=== PATIENT | female | born 1975 | race Caucasian/White ===

== ENCOUNTER → 2021-09-25 16:09 | Outpatient (BNVA) | payer OTHER, SELFPAY | PROVIDERS: Visit Provider Family Medicine | DX: F32.9 Major depressive disorder, single episode, unspecified (principal); E03.9 Hypothyroidism, unspecified; E78.2 Mixed hyperlipidemia; F51.05 Insomnia due to other mental disorder; F40.9 Phobic anxiety disorder, unspecified; Z12.4 Encounter for screening for malignant neoplasm of cervix; R59.0 Localized enlarged lymph nodes | CPT/HCPCS: 80053; 80061; 83721; 84439; 84443; 85025 ==

== ENCOUNTER → 2021-10-17 15:12 | Outpatient (BNVA) | payer OTHER, SELFPAY | PROVIDERS: Referring Provider Family Medicine; Visit Provider Nurse Practitioner Women's Health | DX: Z01.419 Encounter for gynecological examination (general) (routine) without abnormal findings (principal); N91.2 Amenorrhea, unspecified; N76.0 Acute vaginitis; R59.0 Localized enlarged lymph nodes; N89.8 Other specified noninflammatory disorders of vagina | CPT/HCPCS: 82670; 83001; 84146; 84702; 87624 ==

== ENCOUNTER 2021-11-21 06:27 | Outpatient (CLI) | payer OTHER, SELFPAY ==
--- NOTE | 2021-11-21 07:00 | US_ITS ---
WS: [id number] TRANSVAGINAL PELVIC ULTRASOUND HISTORY: N91.2 - Amenorrhea, unspecified COMPARISON: None available. Uterus: 6.6 cm x 3.4 cm x 2.8 cm. Normal size anteverted uterus. Hypoechoic mass with shadowing in th e fundus of the uterus. Hypoechoic area measures 0.9 x 1.4 x 1.1 cm. Endometrium: 0.3 cm. Normal homogeneity. No increased vascularity or mass. Right ovary: 2.1 cm x 1.8 cm x 2.2 cm. Normal size ovary. There is a small hypoechoic area within the ovary measuring 8 x 8 mm. Probably representing a small hemorrhagic follicle. No increased vasculari ty. Left ovary: Not visualized. No LEFT adnexal mass. No free fluid in the cul-de-sac. US/US transvaginal [id number] IMPRESSION: 1. Normal endometrium. 2. Small uterine fundal fibroid with a maximum diameter 1.4 cm. 3. LEFT ovary not visualized.
== END 2021-11-21 06:28 | disposition home or self-care (01) ==
PROVIDERS: Visit Provider Nurse Practitioner Women's Health
DX: N91.2 Amenorrhea, unspecified (principal); D25.9 Leiomyoma of uterus, unspecified
CPT/HCPCS: 76830

== ENCOUNTER → 2021-11-28 11:06 | Outpatient (BNVA) | payer OTHER, SELFPAY | PROVIDERS: Visit Provider Nurse Practitioner Women's Health | DX: E03.9 Hypothyroidism, unspecified (principal); N95.1 Menopausal and female climacteric states | CPT/HCPCS: 84443 ==

== ENCOUNTER → 2022-01-30 11:00 | Outpatient (BNVA) | payer OTHER, SELFPAY | PROVIDERS: PCP Family Medicine; Referring Provider Dermatology; Visit Provider Orthopaedic Surgery | DX: M47.897 Other spondylosis, lumbosacral region (principal); M47.896 Other spondylosis, lumbar region | CPT/HCPCS: 72110 ==

== ENCOUNTER 2022-02-13 06:00 | Outpatient (RCR) | payer OTHER, SELFPAY | END 2022-03-11 23:59 | disposition home or self-care (01) | LOC: SPT 06:00 | PROVIDERS: PCP Family Medicine; Referring Provider Orthopaedic Surgery; Visit Provider Orthopaedic Surgery | DX: M54.50 Low back pain, unspecified (principal) | CPT/HCPCS: 81000; 87086; 97110; 97161 ==

== ENCOUNTER → 2022-02-13 11:08 | Outpatient (BNVA) | payer OTHER, SELFPAY | PROVIDERS: PCP Family Medicine; Visit Provider Nurse Practitioner Women's Health | DX: R82.90 Unspecified abnormal findings in urine (principal); N95.0 Postmenopausal bleeding | CPT/HCPCS: 81000; 87086 ==

== ENCOUNTER → 2022-03-05 15:40 | Outpatient (BNVA) | payer OTHER, SELFPAY | PROVIDERS: PCP Family Medicine; Visit Provider Family Medicine | DX: F51.05 Insomnia due to other mental disorder (principal); F40.9 Phobic anxiety disorder, unspecified; E03.9 Hypothyroidism, unspecified; G47.00 Insomnia, unspecified; M48.062 Spinal stenosis, lumbar region with neurogenic claudication | CPT/HCPCS: 84439; 84443 ==

== ENCOUNTER 2022-03-12 06:00 | Outpatient (RCR) | payer OTHER, SELFPAY | END 2022-04-11 23:59 | disposition home or self-care (01) | LOC: SPT 06:00 | PROVIDERS: PCP Family Medicine; Referring Provider Orthopaedic Surgery; Visit Provider Orthopaedic Surgery | DX: M54.50 Low back pain, unspecified (principal) | CPT/HCPCS: 97110 ==

== ENCOUNTER 2022-03-12 14:45 | Outpatient (CLI) | payer OTHER, SELFPAY ==
--- NOTE | 2022-03-12 14:30 | US_ITS ---
WS: [id number] ULTRASOUND PELVIS TECHNIQUE: Transvaginal. CLINICAL INFORMATION: N95.0 - Postmenopausal bleeding LMP: : No. COMPARISON: November 21, 2021 FINDINGS: Uterus Orientation: Anteverted. Size: 7.9 x 2.8 x 3.8 cm Masses: Small intramural uterine fibroid along the fundus measuring measuring 1.5 cm unchanged from p revious. Cervix: Small amount of fluid in the cervix. Endometrium: Heterogeneous complex Endometrium thickness: 9.8 mm. Adnexa: LEFT ovary not visualized Right ovary size: 1.3 x 1.9 x 1.2 cm. Free fluid: Small amount of free fluid along the uterine fundus. Other findings: None. US/US transvaginal [id number] IMPRESSION: 1. Heterogeneous thickened endometrium measuring 9.8 mm. 2. LEFT ovary not visualized. Normal visualized RIGHT ovary. 3. Small amount of fluid in the cervix. Small amount of free fluid along the u terine fundus 4. Small intramural uterine fibroid along the fundus measuring measuring 1.5 c m unchanged from previous.
== END 2022-03-12 14:46 | disposition home or self-care (01) ==
PROVIDERS: PCP Family Medicine; Visit Provider Nurse Practitioner Women's Health
DX: N95.0 Postmenopausal bleeding (principal)
CPT/HCPCS: 76830

== ENCOUNTER → 2022-03-14 11:59 | Outpatient (BNVA) | payer OTHER, SELFPAY | PROVIDERS: PCP Family Medicine; Visit Provider Nurse Practitioner Women's Health | DX: N95.0 Postmenopausal bleeding (principal) | CPT/HCPCS: 82670; 83001 ==

== ENCOUNTER 2022-04-12 06:00 | Outpatient (RCR) | payer OTHER, SELFPAY | END 2022-05-11 23:59 | disposition home or self-care (01) | LOC: SPT 06:00 | PROVIDERS: PCP Family Medicine; Referring Provider Orthopaedic Surgery; Visit Provider Orthopaedic Surgery | DX: M54.50 Low back pain, unspecified (principal) | CPT/HCPCS: 97110 ==

== ENCOUNTER 2022-05-01 08:08 | Day surgery (SDC) | payer OTHER, SELFPAY ==
--- NOTE | 2022-04-30 13:54 | PM.HP ---
Providers/Chief Complaint Primary Care Provider: Clive Mg DO Chief Complaint: postmenopau History of Present Illness Shubham Rahman is a 46 year old female who will undergo hysteroscopy, D&C with myosure Review of Systems General: Reports: 10 or more systems reviewed and unremarkable except in HPI and below Medications/Allergies Home Medications Medication Instructions Recorded Confirmed Last Taken Type levothyroxine 137 mcg tablet 137 mcg PO DAILY #90 tabs 12/04/21 04/19/22 Unknown Rx tramadol 50 mg tablet 50 mg PO Q4H PRN pain #30 tabs 02/05/22 04/19/22 Unknown Rx zolpidem 10 mg tablet 10 mg PO .at bedtime 30 days #30 02/27/22 04/19/22 Unknown Rx tabs trazodone 100 mg tablet 100 mg PO DAILY #90 tabs 03/05/22 04/19/22 Unknown Rx rosuvastatin 20 mg tablet 20 mg PO DAILY #30 tabs 04/02/22 04/19/22 Unknown Rx cyclobenzaprine 10 mg tablet 10 mg PO TID PRN muscle spasm #60 04/19/22 04/19/22 Unknown Rx tabs topiramate 50 mg tablet 50 mg PO BID pain #60 tabs 04/19/22 04/19/22 Unknown Rx fluoxetine 20 mg capsule See Rx Instructions .Route 04/23/22 Unknown Rx .COMPLEX #30 caps Allergies Allergy/AdvReac Type Severity Reaction Status Date / Time No Known Allergies Allergy Verified 04/19/22 09:02 PFSH Acute PFSH: Medical History Acquired hypothyroidism Major depressive disorder Mixed dyslipidemia No pertinent past medical history neghx: htn,dm,dvt/pe PCP: Dr. Mg Surgical History Hx of oral surgery (~2018) Family History Mother Heart disease Denies family history of Colon cancer Ovarian cancer Diabetes Hypercholesteremia Breast cancer Hypertension Uterine cancer Thyroid disease Stroke Social History Alcohol intake: current Physical Exam Narrative: The patient presented to discuss hysteroscopy, D&C with myosure.? She is postmenopausal with a thickened endometrium and PMB.? She had cervical stenosis and an EMB was unable to be performed.? She has been scheduled for 05/01/22 for hysteroscopy, dilation and curettage with myosure. Const: COMMON NORMALS: no acute distress, patient oriented x3, no limitations, healthy appearing, alert and well nourished GENERAL APPEARANCE: cooperative, comfortable, well kempt and well developed ORIENTATION/CONSCIOUSNESS: Yes awake, Yes oriented to person, Yes oriented to place and Yes oriented to time Resp: COMMON NORMALS: normal respiratory effort EFFORT & INSPECTION: Yes able to speak in complete sentences GI: COMMON NORMALS: Soft to palpation and non-tender : COMMON NORMALS: Yes normal external appearance, Yes normal appearance of the vagina, Yes normal appearance of the cervix, Yes normal bimanual exam and Yes No adnexal tenderness Extremity: COMMON NORMALS: no calf tenderness Psych: COMMON NORMALS: mental status grossly normal, Normal thought process present, cooperative, normal affect and speech normal A&P Assessment and plan (1) Thickened endometrium: The patient has been scheduled for hysteroscopy, dilation and curettage with myosure on 05/01/22 Risks, benefits and alternatives to procedure were discussed with the patient including but not limited to: pain, bleeding, infection, development of a blood clot or pulmonary embolism, damage to bowel, bladder, ureters, blood vessels, formation of scar tissue or even . . These are the most common complications, but there may be other, unforseen complications that could arise during surgery. The patient accepts these risks and desires to proceed. 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
[2022-05-01] VITALS (14 sets, daily range): BP systolic 110–151; BP diastolic 70–100; PULSE 61–83; RESP 12–18; TEMP 36.1–36.4; O2SAT 95–100
--- NOTE | 2022-05-01 07:45 | ANES.PREANE2 ---
Pre-Anesthetic Assessment Height/Weight: Height 1.63 m Weight 82.554 kg Preop Diagnosis: Thickened endometrium Operation Date: 05/01/22 09:15 Proposed Procedures p Hysteroscopy, dilation and curettage with Myosure 05141, [id number],N95.0(Not Applicable) - Margaret Ritter MD s Dilation And Curettage (D&C)(Not Applicable) - Margaret Ritter MD Familial anesthetic complications: None Was Beta Cece taken within 24 hours: N/A Was Clonidine taken within 24 hours: N/A Last intake: 04/30/22 Social Tobacco (Vape) and No alcohol Exam alert, oriented x 3, clear to auscultation bilaterally and regular rate & rhythm Airway Submandibular: within normal limits Cervical ROM: within normal limits Mallampati: Class II Dentition: full Pulmonary None reported CV/HEM None reported METS > 4 Post menopausal bleeding Cervical stenosis (uterine) Thickened endometrium Hepatic None reported GI Obese Metabolic Hyperlipidemia and Thyroid Disease Musc/skel Lower Back Pain and Osteoarthritis/DJD Neuropsych Depression Anesthetic Plan ASA status: 2 Anesthesia: Anesthesia Evaluation and General Other: We discussed risk and benefits of general anesthesia including PONV, sore throat (sometimes severe), corneal abrasion, positioning and peripheral nerve injuries, life threatening allergic reaction, post operative ICU admission requiring prolonged intubation, aspiration, stroke, heart attack, , and rare incidences of recall. Patient consents to proceed with general anesthesia. Risk of > 500 ml blood loss (7ml/kg in children): No Medications/Allergies Home Medications Medication Instructions Recorded Confirmed Last Taken Type levothyroxine 137 mcg tablet 137 mcg PO DAILY #90 tabs 12/04/21 05/01/22 05/01/22 Rx tramadol 50 mg tablet 50 mg PO Q4H PRN pain #30 tabs 02/05/22 05/01/22 04/30/22 Rx zolpidem 10 mg tablet 10 mg PO .at bedtime 30 days #30 02/27/22 05/01/22 04/30/22 Rx tabs trazodone 100 mg tablet 100 mg PO DAILY #90 tabs 03/05/22 05/01/22 04/30/22 Rx rosuvastatin 20 mg tablet 20 mg PO DAILY #30 tabs 04/02/22 05/01/22 04/30/22 Rx cyclobenzaprine 10 mg tablet 10 mg PO TID PRN muscle spasm #60 04/19/22 05/01/22 04/30/22 Rx tabs topiramate 50 mg tablet 50 mg PO BID pain #60 tabs 04/19/22 05/01/22 04/30/22 Rx fluoxetine 20 mg capsule 20 mg PO DAILY 04/30/22 05/01/22 05/01/22 History Allergies Allergy/AdvReac Type Severity Reaction Status Date / Time No Known Allergies Allergy Verified 05/01/22 08:43 PFS Anesthesia Medical History Acquired hypothyroidism Major depressive disorder Mixed dyslipidemia No pertinent past medical history neghx: htn,dm,dvt/pe PCP: Dr. Mg Surgical History Hx of oral surgery (~2018) Family History Mother Heart disease Denies family history of Colon cancer Ovarian cancer Diabetes Hypercholesteremia Breast cancer Hypertension Uterine cancer Thyroid disease Stroke Social History Alcohol intake: current Data Anesthesia Cardiac Studies: No Data to Display
[2022-05-01 08:51] LABS: OR HCG Qualitative Urine Negative (Negative)
[2022-05-01] MEDS: scopolamine 1.5 Patch 1 PATCH TRANSDERMA (08:58)
[2022-05-01] MEDS: diphenhydrAMINE 50 mg/mL SDV 1mL 12.5 MG IVP (08:59)
[2022-05-01] MEDS: sodium chloride 0.9% 1,000 ML 30 ML IV (09:00)
--- NOTE | 2022-05-01 09:27 | W.PM.OPSUD ---
Surgery/Procedure H&P Update DATE OF PROCEDURE: May 01, 2022 DATE H&P PERFORMED: 04/30/22 PREOP DIAGNOSIS: Thickened endometrium PLANNED PROCEDURE: Operation Date: 05/01/22 09:15 Proposed Procedures p Hysteroscopy, dilation and curettage with Myosure 80545, [id number],N95.0(Not Applicable) - Margaret Ritter MD s Dilation And Curettage (D&C)(Not Applicable) - Margaret Ritter MD Related Problem List Diagnoses (1) Thickened endometrium: (2) Postmenopausal bleeding:
[2022-05-01] MEDS: ceFAZolin 2,000 MG in sodium chloride 0.9% (plus) 50 ML 100 MG IV (09:51)
--- NOTE | 2022-05-01 10:47 | PM.OP ---
Operative Report Date of procedure: May 01, 2022 Pre-op diagnosis: Preop Diagnosis Thickened endometrium Post-op diagnosis: same Post-op findings: endometrial polyps and excessive tissue Procedure done: hysteroscopy, dilation and curettage with myosure Specimens removed/disposition: endometrial curettings to pathology Surgeon: Margaret Ritter Anesthesia: General Estimated blood loss (mL): 5 IV fluids (mL): 400 Complications: none Findings: hysteroscopy deficit 270 ml Condition: stable Disposition: PACU Procedure: The patient was taken to the operating room where monitored anesthesia was administered and to be adequate. She was prepped and draped in the normal sterile fashion in the dorsal lithotomy position in [facility]. A weighted speculum was placed into the vagina and the anterior lip of the cervix grasped with a single-tooth tenaculum. The uterus was sounded to 8 cm. The cervix was dilated to 16 [place]. The hysteroscope was advanced into the endometrial cavity. There was 2 large polyps and some excess tissue visualized. The MyoSure device was activated and the tissue was removed. A sharp curette was performed as well, as there was bleeding from the endometrium which made it difficult to see. Pictures were taken All instruments were removed. The patient tolerated the procedure well. Sponge lap and needle counts were correct x3. She was taken to the recovery room in stable condition.
[2022-05-01] MEDS: midazolam 1 mg/mL INJ 2 mL 2 MG IVP (10:49)
--- NOTE | 2022-05-01 10:52 | PM.DCS ---
Discharge Providers Date of Admission: 05/01/22 Date of Discharge: May 01, 2022 Attending Provider at Discharge: Margaret Ritter MD Primary Care Provider: Clive Mg DO Diagnoses at Discharge Discharge Diagnosis (1) Thickened endometrium: Status: Acute (2) Postmenopausal bleeding: Status: Acute Reason for Visit Reason for Visit: postmenopau Hospital Course Hospital Course The patient was admitted for surgery. She did well postoperatively and was ready for discharge Discharge Data Studies Completed and Pending Pending at discharge Category Date Time Status ES surgery / GI images Routine Exams 05/01/22 09:35 Taken Pathology: Surgical [PTH] Routine Pth 05/01/22 10:34 Ordered Laboratory Results Urine HCG, Qual Negative (Negative) 05/01/22 08:47 Vitals Last Vital Signs Temp 97.6 F 05/01/22 08:35 Pulse 67 05/01/22 08:35 Resp 16 05/01/22 08:35 BP 115/71 05/01/22 08:35 Pulse Ox 98 05/01/22 08:35 O2 Del Method 05/01/22 08:35 Discharge Plan Discharge Patient Disposition: Home Condition: Stable Prescriptions: Continued levothyroxine 137 mcg tablet 137 mcg PO DAILY Qty: 90 1RF tramadol 50 mg tablet 50 mg PO Q4H PRN (Reason: pain) Qty: 30 0RF trazodone 100 mg tablet 100 mg PO DAILY Qty: 90 2RF cyclobenzaprine 10 mg tablet 10 mg PO TID PRN (Reason: muscle spasm) Qty: 60 0RF topiramate 50 mg tablet 50 mg PO BID Qty: 60 0RF zolpidem 10 mg tablet 10 mg PO .at bedtime 30 Days Qty: 30 2RF rosuvastatin 20 mg tablet 20 mg PO DAILY Qty: 30 5RF fluoxetine 20 mg capsule 20 mg PO DAILY Rx Instructions: Take 1 capsule by mouth once daily Discharge Orders: Discharge Order (Routine); Ordered 05/01/22 Ordered By: Margaret Ritter Discharge Attestations Time Spent in Discharge Care*: less than 30 min Quality Metrics Clinical Quality Measures [ No reported AMI, CVA or VTE this stay] Coding Level of Care Code Acute Chg FW DC note Diagnoses Thickened endometrium R93.89 Postmenopausal bleeding N95.0
--- NOTE | 2022-05-01 12:19 | ANE.PACU2 ---
Inpatient post-anesthesia follow up: Airway intact: Yes Vital signs: Temperature 97.5 F Pulse Rate 64 Respiratory Rate 16 Blood Pressure 148/90 Pulse Oximetry 99 Oxygen Delivery Me thod Room Air Oxygen Flow Rate 10 Fraction of Inspir ed Oxygen Hydration adequate: Yes Nausea and vomiting: No Pain level: 3 Mental status: Baseline
== END 2022-05-01 12:00 | disposition home or self-care (01) ==
PROVIDERS: Anesthesiology; PCP Family Medicine; Visit Provider Obstetrics & Gynecology
PROC: 0UDB8ZZ Extraction of Endometrium, Via Natural or Artificial Opening Endoscopic (ICD-10-PCS; CPT 58558; principal; 2022-05-01 09:15)
PROC: (CPT 58120; 2022-05-01 09:15)
DX: R93.89 Abnormal findings on diagnostic imaging of other specified body structures (principal); N95.0 Postmenopausal bleeding; N88.2 Stricture and stenosis of cervix uteri; F17.290 Nicotine dependence, other tobacco product, uncomplicated; E03.9 Hypothyroidism, unspecified; E78.2 Mixed hyperlipidemia
CPT/HCPCS: 58552; 81025; 84703; 88305; J1100; J1200; J2250; J2405; J3010; J7030

== ENCOUNTER 2022-05-12 06:00 | Outpatient (RCR) | payer OTHER, SELFPAY | END 2022-05-15 23:59 | disposition home or self-care (01) | LOC: SPT 06:00 | PROVIDERS: PCP Family Medicine; Referring Provider Orthopaedic Surgery; Visit Provider Orthopaedic Surgery | DX: M54.50 Low back pain, unspecified (principal) | CPT/HCPCS: 97110 ==

== ENCOUNTER → 2023-02-25 15:45 | Outpatient (BNVA) | payer OTHER, SELFPAY | PROVIDERS: PCP Family Medicine; Visit Provider Family Medicine | DX: F32.9 Major depressive disorder, single episode, unspecified (principal); E03.9 Hypothyroidism, unspecified; E78.2 Mixed hyperlipidemia; J32.9 Chronic sinusitis, unspecified | CPT/HCPCS: 80053; 80061; 82306; 83036; 84439; 84443; 85025 ==

== ENCOUNTER 2023-05-22 14:43 | Outpatient (CLI) | payer OTHER, SELFPAY ==
--- NOTE | 2023-05-22 15:00 | CT_ITS ---
WS: [id number] CT PARANASAL SINUSES HISTORY: Sinus pain and pressure for 2 months. TECHNIQUE: Contiguous 2.5 mm axial images obtained through the sinuses. Images are reconstructed in s agittal and coronal planes. All CT scans at [facility] use at least one of these dose optimiz ation techniques: automated exposure control; mA and/or kV adjustment per patient size (includes targ eted exams where dose is matched to clinical indication); or iterative reconstruction. DLP: 364.28 mGy.cm COMPARISON: None available. Frontal sinuses: Normal. Sphenoid sinus: Normal. Ethmoid sinuses: Normal. Maxillary sinus: Normal. No air-fluid levels. No mucous retention cyst. Ostiomeatal unit: Widely patent. No soft tissue obstructing the ostiomeatal unit. Mild deviation of the nasal septum and spurring to the RIGHT. 5 mm spur extends to the RIGHT and abut s the inferior RIGHT turbinate. Orbits and globes are negative. No destructive bone lesions. IMPRESSION: 1. No paranasal sinus disease. 2. Mild RIGHT deviation of the nasal septum with a bony spur contacting the inferior turbinate.
== END 2023-05-22 14:44 | disposition home or self-care (01) ==
PROVIDERS: PCP Family Medicine; Visit Provider Otolaryngology
DX: J32.9 Chronic sinusitis, unspecified (principal); J34.2 Deviated nasal septum; J34.89 Other specified disorders of nose and nasal sinuses
CPT/HCPCS: 70486

== ENCOUNTER → 2023-08-21 10:02 | Outpatient (BNVA) | payer BC, SELFPAY | PROVIDERS: PCP Family Medicine; Visit Provider Family Medicine | DX: E78.2 Mixed hyperlipidemia (principal); E03.9 Hypothyroidism, unspecified | CPT/HCPCS: 80048; 80061; 83721; 84439; 84443; 85025 ==

== ENCOUNTER 2024-02-27 10:15 | Emergency (ER) | payer OTHER, SELFPAY ==
[2024-02-27 10:34] VITALS: BP 168/99; PULSE 79; RESP 18; TEMP 36.8; O2SAT 96; BMI 34.3
--- NOTE | 2024-02-27 11:00 | ECG_ITS ---
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 Measurements Intervals [place] Rate: 75 P: 33 [place]: 187 QRS: -9 QRSD: 102 T: 46 QT: 404 QTc: 452 Interpretive Statements SINUS RHYTHM MINIMAL VOLTAGE CRITERIA FOR LVH, CONSIDER NORMAL VARIANT [MEETS CRITERIA IN ONE OF: R(aVL), S(V1), R(V5), R(V5/V6)+S(V1)] No previous ECG available for comparison Electronically Signed On 02-27-2024 22:22:12 CDT by Sussy Park M.D. [email or web address] (Inspect [id number] f
[2024-02-27 11:36] LABS: Basophils % 0.4 %; Eosinophils # 0.2 10^3/uL (0.0-0.8); Eosinophils % 3.9 %; Hematocrit 37.8 % (36-47); Lymphocytes # 1.6 10^3/uL (0.8-4.8); Lymphocytes % 33.8 %; Mean Corpuscular HGB Conc 33.3 g/dL (30-55); Mean Corpuscular Volume 92.9 fl (85-98); Mean Platelet Volume 9.8 fL (7.4-10.4); Monocytes # 0.4 10^3/uL (0.2-0.9); Monocytes % 9.2 %; Neutrophils # 2.44 10^3/uL (1.8-7.7); Neutrophils % 52.5 %; Nucleated Red Blood Cells % 0 %; Platelet Count 191 10^3/cmm (157-399); Red Blood Count 4.07 10^6/uL (3.85-5.65); Red Cell Distribution Width 13.2 % (12.1-15.1); White Blood Count 4.65 10^3/uL (3.29-11.43)
[2024-02-27 11:49] LABS: Troponin(5th) Baseline < 6 ng/L (0-10)
[2024-02-27 11:51] LABS: Alanine Aminotransferase 41 U/L (0-33); Albumin Level 4.4 g/dL (3.5-5.2); Alkaline Phosphatase 78 U/L (35-105); Anion Gap 17.9 (5-19); Aspartate Amino Transferase 28 U/L (0-32); Blood Urea Nitrogen 12 mg/dL (6-20); Calcium 9.2 mg/dL (8.5-10.5); Carbon Dioxide 24 mmol/L (22-29); Chloride 106 mmol/L (98-107); Creatinine Clr Calc Pharmacy 126.4566; Globulin 2.6 g/dL (1.3-4.6); Glomerular Filtration Rate 107.2 mL/min (90-130); Glucose 125 mg/dL (65-115); Lipase 38 U/L (13-60); Osmolality Calculated 299 mOsm/kg (285-295); Potassium 3.9 mmol/L (3.5-5.1); Sodium 144 mmol/L (136-145); Total Bilirubin 0.2 mg/dL (0.15-1.2)
[2024-02-27 12:16] VITALS: BP 147/99; PULSE 71; RESP 16; O2SAT 94
--- NOTE | 2024-02-27 12:19 | XRR_ITS ---
PROCEDURE INFORMATION: Exam: XR Chest Exam date and time: 02/27/2024 12:36 PM Age: 48 years old Clinical indication: Pain; Angina pectoris; Patient HX: Cp that radiates through the shoulder and back. History of uterine cancer TECHNIQUE: Imaging protocol: Radiologic exam of the chest. Views: 1 view. COMPARISON: ES surgery / GI images 05/01/2022 9:59 AM FINDINGS: Lungs: Unremarkable. No consolidation or mass. Pleural spaces: Unremarkable. No pleural effusion. No pneumothorax. Heart/Mediastinum: Unremarkable. No cardiomegaly. Bones/joints: Unremarkable. XR/XR chest 1V portable [id number] IMPRESSION: No acute findings.
--- NOTE | 2024-02-27 12:20 | W.ED.CHESTPA ---
HPI - Chest Pain General: Chief Complaint: Chest Pain Stated Complaint: back pain, left shoulder, nausea, headache Time Seen by Provider: 02/27/24 12:12 Source: patient Mode of arrival: ambulatory Limitations: no limitations History of Present Illness: 48-year-old female states she started having a sharp pain last night and chest. States the pain seems worse with palpation she has no history of heart disease. Has had a mild headache as well denies any abdominal pain denies any nausea or vomiting. She denies any cough or fever Associated symptoms: Deny abdominal pain, dyspnea, fever(s), nausea or vomiting Review of Systems Const: Denies: fever(s), chills, body aches or change in appetite ENMT: Denies: throat pain or dental pain Card: Reports: chest pain Resp: Denies: dyspnea GI: Denies: abdominal pain, nausea, vomiting or diarrhea Musc: Denies: neck pain or back pain Skin/Breast: Denies: rash Neuro: Denies: headache(s) Pa/Lymph: Denies: easy bruising PFSH ED PFSH: Medical History Complex endometrial hyperplasia with atypia Thickened endometrium Postmenopausal bleeding No pertinent past medical history neghx: htn,dm,dvt/pe PCP: Dr. Mg Mixed dyslipidemia Acquired hypothyroidism Major depressive disorder Surgical History H/O total vaginal hysterectomy (~07/02/22) LAVH, BSO for complex hyperplasia with atypia. Pathology returned normal. Performed by Dr. Pickard Employee Benefits Specialist/Onc. Hx of oral surgery (~2017) Family History Mother Heart disease Denies family history of Colon cancer Ovarian cancer Diabetes Hypercholesteremia Breast cancer Hypertension Uterine cancer Thyroid disease Stroke Social History Alcohol intake: current Substance/Drug Use: never Physical Exam Const: COMMON NORMALS: no acute distress, patient oriented x3 and healthy appearing HENMT: COMMON NORMALS: normocephalic and atraumatic HEAD & SCALP: normocephalic and atraumatic Neck/C-Spine: COMMON NORMALS: full ROM and supple Chest: COMMONS NORMALS: normal inspection of the chest OTHER: tenderness over left chest Resp: COMMON NORMALS: normal respiratory effort, No retractions, No use of accessory muscles and clear to auscultation bilaterally AUSCULTATION: clear to auscultation bilaterally Cardio: COMMON NORMALS: regular rate, regular rhythm and No murmurs present (Cardio) RATE: regular rate RHYTHM: regular rhythm GI: COMMON NORMALS: Normal to inspection, nondistended, normoactive bowel sounds present, Soft to palpation, non-tender and no masses PALPATION: Yes Soft to palpation Extremity: COMMON NORMALS: normal to inspection and full ROM Neuro: COMMON NORMALS: patient oriented x3, moves all extremities and no focal motor deficits Psych: COMMON NORMALS: mental status grossly normal, Normal thought process present and cooperative THOUGHT PROCESS: Normal thought process present Skin: COMMON NORMALS: no rashes or lesions noted and no wounds GENERAL SKIN EXAM: no rashes or lesions noted Course Vital Signs: Vital signs: Vital Signs Temperature 98.2 F 02/27/24 14:16 Pulse Rate 70 02/27/24 14:16 Respiratory Rate 16 02/27/24 14:16 Blood Pressure 162/96 02/27/24 14:16 Pulse Oximetry 96 02/27/24 14:16 Oxygen Delivery Me thod Room Air 02/27/24 12:16 MDM - Chest Pain Medical Decision Making Patient presents here with chest pains atypical in nature her heart enzymes here are normal no signs of acute coronary syndrome she is stable for discharge follow-up with PCP return if worsening. Medical Records I reviewed the patient's medical records. Lab Data I reviewed the patient's lab results. 02/27/24 11:26 02/27/24 11:26 Radiology Impressions Chest X-Ray 02/27/24 12:19 IMPRESSION: No acute findings. Laboratory Results WBC 4.65 10^3/uL (3.29-11.43) 02/27/24 11:26 RBC 4.07 10^6/uL (3.85-5.65) 02/27/24 11:26 Hgb 12.60 g/dL (11.27-16.99) 02/27/24 11:26 Hct 37.8 % (36-47) 02/27/24 11:26 MCV 92.9 fl (85-98) 02/27/24 11:26 MCH 31.0 pg (27-33) 02/27/24 11: MCHC 33.3 g/dL (30-55) 02/27/24 11:26 RDW 13.2 % (12.1-15.1) 02/27/24 11:26 Plt Count 191 10^3/cmm (157-399) 02/27/24 11:26 MPV 9.8 fL (7.4-10.4) 02/27/24 11:26 Neut % (Auto) 52.5 % 02/27/24 11:26 Lymph % (Auto) 33.8 % 02/27/24 11:26 Kinney % (Auto) 9.2 % 02/27/24 11:26 Eos % (Auto) 3.9 % 02/27/24 11: Baso % (Auto) 0.4 % 02/27/24 11: Neut # (Auto) 2.44 10^3/uL (1.8-7.7) 02/27/24 11:26 Lymph # (Auto) 1.6 10^3/uL (0.8-4.8) 02/27/24 11:26 Kinney # (Auto) 0.4 10^3/uL (0.2-0.9) 02/27/24 11: Eos # (Auto) 0.2 10^3/uL (0.0-0.8) 02/27/24 11:26 Baso # (Auto) 0.0 10^3/uL (0.0-0.1) 02/27/24 11:26 Nucleated RBC % (auto) 0 % 02/27/24 11: Nucleated RBCs # 0.0 /100WBC 02/27/24 11:26 Sodium 144 mmol/L (136-145) 02/27/24 11:26 Potassium 3.9 mmol/L (3.5-5.1) 02/27/24 11:26 Chloride 106 mmol/L (98-107) 02/27/24 11:26 Carbon Dioxide 24 mmol/L (22-29) 02/27/24 11:26 Anion Gap 17.9 (5-19) 02/27/24 11:26 BUN 12 mg/dL (6-20) 02/27/24 11:26 Creatinine 0.6 mg/dL (0.5-0.9) 02/27/24 11:26 GFR Calculation 107.2 mL/min (90-130) 02/27/24 11:26 Glucose 125 mg/dL (65-115) H 02/27/24 11:26 Calculated Osmolality 299 mOsm/kg (285-295) H 02/27/24 11:26 Calcium 9.2 mg/dL (8.5-10.5) 02/27/24 11:26 Total Bilirubin 0.2 mg/dL (0.15-1.2) 02/27/24 11:26 AST 28 U/L (0-32) 02/27/24 11:26 ALT 41 U/L (0-33) H 02/27/24 11:26 Alkaline Phosphatase 78 U/L (35-105) 02/27/24 11:26 Troponin T Baseline < 6 ng/L (0-10) 02/27/24 11:26 Troponin T 120 Minute 6.00 ng/L (0-10) 02/27/24 13:33 Delta Troponin T 0.15418 ABS# (0-10) 02/27/24 13:33 Total Protein 7.0 g/dL (6.6-8.7) 02/27/24 11:26 Albumin 4.4 g/dL (3.5-5.2) 02/27/24 11:26 Globulin 2.6 g/dL (1.3-4.6) 02/27/24 11:26 Lipase 38 U/L (13-60) 02/27/24 11:26 All radiology interpretation(s) finalized by discharge Discharge Plan Discharge Patient Disposition: Home Clinical Impression: Chest pain Condition: Stable Prescriptions: No Action estradiol 0.05 mg/24 hr patch weekly 1 patch topical .weekly 28 Days Qty: 4 11RF Rx Instructions: CHANGE ON SATURDAY fluoxetine 20 mg capsule 20 mg PO DAILY Qty: 90 0RF ibuprofen 200 mg Tablet 400 mg PO Q6H PRN (Reason: Pain) levothyroxine 137 mcg tablet 137 mcg PO DAILY zolpidem 10 mg tablet 10 mg PO BEDTIME rosuvastatin 20 mg tablet 20 mg PO DAILY Discharge Orders: Discharge ED (Routine); Ordered 02/27/24 Ordered By: Korby Maik Referrals: Clive Mg DO [Primary Care Provider] - 4-7 days Discharge Diet: Advance as tolerated Discharge Activity: Resume usual activity Patient Instructions: Chest Pain (ED) Coding Level of Care Code 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
--- NOTE | 2024-02-27 13:00 | ECG_ITS ---
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 Measurements Intervals [place] Rate: 68 P: 24 [place]: 185 QRS: -12 QRSD: 104 T: 29 QT: 414 QTc: 441 Interpretive Statements SINUS RHYTHM MODERATE VOLTAGE CRITERIA FOR LVH, CONSIDER NORMAL VARIANT [MEETS CRITERIA IN ONE OF: R(aVL), S(V1), R(V5), R(V5/V6)+S(V1)] POSSIBLE ANTERIOR MYOCARDIAL INFARCTION , PROBABLY OLD [30 ms Q WAVE IN V3/V4, OR R < 0.2 mV IN V4] Compared to ECG 02/27/2024 10:35:01 Myocardial infarct finding now present Electronically Signed On 02-27-2024 22:29:04 CDT by Sussy Park M.D. [id number]
[2024-02-27 13:56] LABS: Troponin 5 2HR Delta 0.00001 ABS# (0-10)
[2024-02-27 14:16] VITALS: BP 162/96; PULSE 70; RESP 16; TEMP 36.8; O2SAT 96
== END 2024-02-27 14:16 | disposition home or self-care (01) ==
PROVIDERS: Emergency Provider Emergency Medicine; PCP Family Medicine
DX: R07.9 Chest pain, unspecified (principal); E78.2 Mixed hyperlipidemia
CPT/HCPCS: 36415; 71045; 80053; 83690; 84484; 85025; 93005; 99285

== ENCOUNTER → 2024-07-20 16:00 | Outpatient (BNVA) | payer OTHER, SELFPAY | PROVIDERS: PCP Family Medicine; Visit Provider Family Medicine | DX: E03.9 Hypothyroidism, unspecified (principal); R79.89 Other specified abnormal findings of blood chemistry; E78.2 Mixed hyperlipidemia; E55.9 Vitamin D deficiency, unspecified | CPT/HCPCS: 80053; 80061; 82306; 82607; 82746; 84439; 84443; 85025 ==

== ENCOUNTER → 2024-08-10 09:00 | Outpatient (BNVA) | payer OTHER, SELFPAY | PROVIDERS: PCP Family Medicine | DX: B37.9 Candidiasis, unspecified (principal) | CPT/HCPCS: 81000; 87086 ==

== ENCOUNTER → 2024-08-14 18:31 | Outpatient (BNVA) | payer OTHER, SELFPAY | PROVIDERS: PCP Family Medicine; Visit Provider Nurse Practitioner Family | DX: N39.0 Urinary tract infection, site not specified (principal) | CPT/HCPCS: 81000 ==

== ENCOUNTER 2024-10-23 09:42 | Outpatient (CLI) | payer OTHER, SELFPAY ==
--- NOTE | 2024-10-23 09:40 | MM_ITS ---
WS: [id number] SCREENING DIGITAL BREAST TOMOSYNTHESIS MAMMOGRAM WITH CAD HISTORY: screening COMPARISON: None available. Bilateral CC and MLO with tomosynthesis and synthetic mammography submitted. Computer aided detection analyzed. Breast composition: The breasts are almost entirely fatty. Well-circumscribed solid mass anterior, upper outer quadrant RIGHT breast measures 6 x 3 x 6 mm. This may be a lymph node. This is probably near the 9-10 o'clock axis. Otherwise no suspicious mass or calcification. MM/MM scr tomosynthesis [id number] IMPRESSION: BI-RADS: 0 - Incomplete: Need additional imaging evaluation. FOLLOW UP: Need Additional Imaging Recommendation: RIGHT breast ultrasound, limited upper outer quadrant RIGHT viet ast.
== END 2024-10-23 09:43 | disposition home or self-care (01) ==
PROVIDERS: PCP Family Medicine; Visit Provider Family Medicine
DX: Z12.31 Encounter for screening mammogram for malignant neoplasm of breast (principal); R92.313 Mammographic fatty tissue density, bilateral breasts; N63.11 Unspecified lump in the right breast, upper outer quadrant
CPT/HCPCS: 77063; 77067

== ENCOUNTER → 2025-02-09 07:03 | Outpatient (BNVA) | payer OTHER, SELFPAY | PROVIDERS: PCP Family Medicine; Visit Provider Emergency Medicine | DX: E78.2 Mixed hyperlipidemia (principal); E03.9 Hypothyroidism, unspecified | CPT/HCPCS: 80048; 80061; 83721; 84439; 84443; 85025 ==

== ENCOUNTER → 2025-03-23 08:50 | Outpatient (BNVA) | payer OTHER, SELFPAY | PROVIDERS: PCP Family Medicine; Visit Provider Psychiatry & Neurology Neurology | DX: E55.9 Vitamin D deficiency, unspecified (principal); G43.009 Migraine without aura, not intractable, without status migrainosus | CPT/HCPCS: 36415; 82306; 82607; 82746; 83735; 83921 ==

== ENCOUNTER 2025-04-09 13:47 | Outpatient (CLI) | payer OTHER, SELFPAY ==
--- NOTE | 2025-04-09 13:45 | MR_ITS ---
WS: [id number] MRI BRAIN WITH AND WITHOUT CONTRAST HISTORY: G43.009 - Migraine without aura, not intractable, constant bitemporal headaches. COMPARISON: None available. TECHNIQUE: Multiplanar imaging performed through the brain with MultiHance 19 ml's IV. No acute infarcts are seen. Srinivasan-white matter differentiation is well preserved. Scattered T2 and FLAIR signal hyperintensities in the subcortical cortical white matter, predominantly involving the frontal lobes. No prior infarct. No hemorrhage. No hippocampal atrophy. No susceptibility artifacts or prior lacunar infarcts. Ventricles and extra-axial spaces are normal. Clivus and pituitary gland are normal. Visualized posterior fossa and brainstem are also normal. Postcontrast images are negative for masses or vascular malformations. Dural venous sinuses are normal. Paranasal sinuses: Well aerated with no significant disease. Mastoid air cells: Normal. Calvarium and scalp: Normal. MR/MR head wo/w con [id number] IMPRESSION: 1. Normal diffusion imaging. No infarct. 2. Minimal small vessel ischemic type changes in the subcortical frontal lobes . 3. No significant cerebral atrophy. 4. No mass or vascular malformations. 5. Normal ventricles.
--- NOTE | 2025-04-09 14:30 | MR_ITS ---
WS: [email or web address] MRI LUMBAR SPINE NONCONTRAST HISTORY: G43.009 - Migraine without aura, not intractable, without... COMPARISON: 02/08/2022 TECHNIQUE: Sagittal and axial multisequence imaging is submitted. Mild increase in the lumbar lordosis. Motion artifact. Moderate disc base narrowing and desiccation at L4-5 and L5-S1 similar to the prior study. Conus terminates normally at L1-2 disc level. L1-L2: Normal. L2-L3: Normal. L3-L4: Mild ligamentum flavum and facet arthritis. No stenosis. L4-L5: Diffuse disc bulging with a large central disc protrusion contacting the ventral thecal sac and the traversing L5 nerve roots. Similar to the prior study. Mild central, bilateral subarticular recess and mild foraminal stenosis. L5-S1: Large central disc protrusion contacts the ventral thecal sac. There is contact on the LEFT traversing S1 nerve root. Mild central stenosis. Ligamentum flavum and facet arthritis. Severe LEFT foraminal stenosis with effacement of fat. Mild RIGHT foraminal stenosis. MR/MR lumbar spine wo con* [id number] IMPRESSION: 1. Degenerative disc disease at L4-5 and L5-S1. 2. L5-S1: Large central disc protrusion contacting and deforming the ventral t hecal sac. Severe LEFT foraminal stenosis. There is disc contact on the LEFT L5 and S1 nerve roots. 3. L4-5: Large central disc protrusion similar to the prior study. Mild centra l, subarticular recess and foraminal stenosis. There is disc contact on the tra versing L5 nerve roots.
== END 2025-04-09 13:48 | disposition home or self-care (01) ==
LOC: RAD 13:50
PROVIDERS: PCP Family Medicine; Visit Provider Psychiatry & Neurology Neurology
DX: G43.009 Migraine without aura, not intractable, without status migrainosus (principal); M51.369 Other intervertebral disc degeneration, lumbar region without mention of lumbar back pain or lower extremity pain; M51.27 Other intervertebral disc displacement, lumbosacral region; M48.061 Spinal stenosis, lumbar region without neurogenic claudication; M48.07 Spinal stenosis, lumbosacral region
CPT/HCPCS: 70553; 72148

== ENCOUNTER 2025-04-23 09:03 | Outpatient (CLI) | payer OTHER, SELFPAY ==
--- NOTE | 2025-04-23 08:30 | FL_ITS ---
WS: [email or web address] LUMBAR PUNCTURE UNDER FLUOROSCOPY: OBTAIN CSF FOR ANALYSIS HISTORY: G43.009 - Migraine without aura, not intractable, without... COMPARISON: MRI head reviewed from 04/09/2025. FLUOROSCOPY TIME: 1min [id number] # of spot films: 1 Procedure, complications, and risk and benefits explained to the patient. Consent was obtained. Recent laboratory work and medication are reviewed prior to procedure. Skin over the lumbar is cleansed with ChloraPrep and anesthetized with 1% buffered lidocaine. Access into the thecal sac is achieved. CSF is removed in a sterile manner and placed in the sterile tubes. Approximately 17 ml is removed without difficulty. CSF is clear. Lumbar puncture opening pressure: 17 cmH20. No complications are encountered. CSF this into the laboratory for analysis as requested. FL/FL guided lumbarpunc dx* [id number] IMPRESSION: Uncomplicated lumbar puncture for CSF. 17 mL clear fluid collected. Normal opening pressure.
[2025-04-23 10:34] LABS: Mononuclear WBC CSF % 100 % (50-90); Polynuclear WBC CSF % 0 % (0-10); Red Blood Cell CSF 0 10^3/uL (0-0); White Blood Cell CSF 1 /uL (0-5)
[2025-04-28 01:34] LABS: VDRL on CSF NON-REACTIVE
== END 2025-04-23 09:04 | disposition home or self-care (01) ==
LOC: RAD 09:06
PROVIDERS: PCP Family Medicine; Visit Provider Psychiatry & Neurology Neurology
DX: G43.009 Migraine without aura, not intractable, without status migrainosus (principal)
CPT/HCPCS: 62328; 80503; 82945; 84157; 86592; 87015; 87070; 87075; 87116; 87205; 87206; 87327; 87801; 89050; J9999

== ENCOUNTER → 2025-06-22 08:01 | Outpatient (BNVA) | payer OTHER, SELFPAY | PROVIDERS: PCP Family Medicine; Visit Provider Registered Nurse Neonatal Intensive Care | DX: R50.9 Fever, unspecified (principal) | CPT/HCPCS: 87426 ==